=== PATIENT | male | born 1980 | race Caucasian/White ===

== ENCOUNTER 2016-04-09 06:38 | Emergency (ER) | payer MEDICAID ==
[2016-04-09 06:58] VITALS: TEMP 98.1
[2016-04-09] MEDS ORDERED: LORazepam 1 MG TAB PO ONE ×2 (07:26→09:11)
--- NOTE | 2016-04-09 07:28 | EDPHY ---
H & P Stated Complaint: palpitations, no sleep Time Seen by Provider: 04/09/16 07:18 HPI/ROS: CHIEF COMPLAINT: Insomnia and alcohol withdrawal HISTORY OF PRESENT ILLNESS: Patient is a 36-year-old man with history of alcoholism. He had been clean after a treatment facility for the last 9 weeks but then fell off the wagon on Thursday and has been drinking for the last 72 hours. His last drink was about 5 hours ago. He states that he has not slept for 2 days. He is tremulous and tachycardic. He has had trouble with alcohol withdrawal before. He is also on a slow Klonopin taper prescribed by his primary physician at [facility]. He took a triple dose this morning without significant relief. No vomiting. No seizures. No fever. REVIEW OF SYSTEMS: Constitutional: denies: chills, fever, recent illness, recent injury EENTM: denies: blurred vision, double vision, nose congestion Respiratory: denies: cough, shortness of breath Cardiac: denies: chest pain, irregular heart rate, lightheadedness, palpitations Gastrointestinal/Abdominal: denies: abdominal pain, diarrhea, nausea, vomiting, blood streaked stools Genitourinary: denies: dysuria, frequency, hematuria, pain Musculoskeletal: denies: joint pain, muscle pain Skin: denies: lesions, rash, jaundice, bruising Neurological: denies: headache, numbness, paresthesia, tingling, dizziness, weakness Hematologic/Lymphatic: denies: blood clots, easy bleeding, easy bruising Immunologic/allergic: denies: HIV/AIDS, transplant EXAM: GENERAL: Well-appearing, well-nourished and in no acute distress. HEAD: Atraumatic, normocephalic. EYES: Pupils equal round and reactive to light, extraocular movements intact, sclera anicteric, conjunctiva are normal. ENT: TMs normal, nares patent, oropharynx clear without exudates. Moist mucous membranes. NECK: Normal range of motion, supple without lymphadenopathy or JVD. LUNGS: Breath sounds clear to auscultation bilaterally and equal. No wheezes rales or rhonchi. HEART: Slightly tachycardic, Regular rate and rhythm without murmurs, rubs or gallops. ABDOMEN: Soft, nontender, normoactive bowel sounds. No guarding, no rebound. No masses appreciated. BACK: No CVA tenderness, no spinal tenderness, step-offs or deformities EXTREMITIES: Normal range of motion, no pitting or edema. No clubbing or cyanosis. NEUROLOGICAL: Mild tremors, Cranial nerves II through XII grossly intact. Normal speech, normal gait. 5/5 strength, normal movement in all extremities, normal sensation PSYCH: Anxious, Vero SKIN: Warm, dry, normal turgor, no visible rashes or lesions. Source: Patient Exam Limitations: No limitations - Personal History Current Tetanus/Diphtheria Vaccine: Yes Current Tetanus Diphtheria and Acellular Pertussis (TDAP): Yes - Medical/Surgical History Hx Asthma: No Hx Chronic Respiratory Disease: No Hx Diabetes: No Hx Cardiac Disease: No Hx Renal Disease: No Hx Cirrhosis: No Hx Alcoholism: Yes Hx HIV/AIDS: No Hx Splenectomy or Spleen Trauma: No Other PMH: PMH: DENIES, INSOMNIA, ETOH WITHDRAWAL, R foot fx. PSH: DENIES - Family History Significant Family History: No pertinent family hx - Social History Smoking Status: Current every day smoker Alcohol Use: Heavy Drug Use: Other Constitutional: Initial Vital Signs Temperature (C) 36.7 C 04/09/16 06:54 Heart Rate 128 H 04/09/16 06:54 Respiratory Rate 16 04/09/16 06:54 Blood Pressure 124/87 H 04/09/16 06:54 O2 Sat (%) 95 04/09/16 06:54 O2 Delivery Mode Room Air Allergies/Adverse Reactions: No Known Allergies Allergy (Unverified 04/09/16 06:54) Home Medications: Medication Instructions Recorded CLONAZEPAM 11/26/15 Medical Decision Making - Diagnostics EKG Interpretation: An EKG obtained and was read and documented in trace view. Please see trace view for full reading and report. Sinus tachycardia no acute ischemic changes or arrhythmias ED Course/Re-evaluation: I will treat the patient with oral Ativan. He most likely cannot go to the alcohol recovery Center for 2 reasons. 1 he is on a benzo taper prescribed by his primary doctor. 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 We will try to control his symptoms here in the ER and likely discharge him with a Librium sample pack. He has a follow-up appointment with his doctor tomorrow to reassess his Klonopin taper. 915 a.m. the patient is doing much better. His heart rate is down to 105. I will treat him with more Ativan. He continues to pace. He is feeling palpitations and is requesting an EKG. 10:15 a.m. the patient is asking to go home. He feels better after Ativan. I will give him a take-home pack of Librium. He is not able to to the alcohol recovery Center for several reasons. He has a follow-up appoint with his primary care doctor tomorrow. Declines further workup or testing. Additional verbal discharge instructions given. Differential Diagnosis: Partial list of the Differential diagnosis considered include but were not limited to; Alcohol withdrawal, anxiety and although unlikely based on the history and physical exam, I also considered arrhythmia, acute coronary disease , infection. I discussed these differential diagnoses and the plan with the patient as well as the usual and expected course. The patient understands that the diagnosis is provisional and that in medicine we are not always correct and that further workup is often warranted. Usual and customary warnings were given. All of the patient's questions were answered. The patient was instructed to return to the emergency department should the symptoms at all worsen or return, otherwise to followup with the physician as we discussed. - Data Points Medications Given: Discontinued Medications Acetaminophen (Tylenol) 1,000 mg PO EDNOW ONE Stop: 04/09/16 09:21 Last Admin: 04/09/16 09:25 Dose: 1,000 mg Chlordiazepoxide (Librium 25 Mg Prepack#6) 1 btl TAKEHOME EDNOW ONE Stop: 04/09/16 10:20 Last Admin: 04/09/16 10:50 Dose: Not Given Lorazepam (Ativan) 2 mg PO EDNOW ONE Stop: 04/09/16 07:27 Last Admin: 04/09/16 07:30 Dose: 2 mg Lorazepam (Ativan) 2 mg PO EDNOW ONE Stop: 04/09/16 09:12 Last Admin: 04/09/16 09:15 Dose: 2 mg Departure - Departure Disposition: Home, Routine, Self-Care Clinical Impression: Alcohol withdrawal Qualifiers: Complication of substance-induced condition: uncomplicated Qualified Code(s): F10.230 - Alcohol dependence with withdrawal, uncomplicated Condition: Fair Instructions: Chlordiazepoxide (By mouth), Alcohol Withdrawal (ED) Referrals: DARBY MORTENSEN [Other] - As per Instructions
--- NOTE | 2016-04-09 09:18 | CPEKG ---
Heart Rate: 108 RR Interval: 556 P-R Interval: 144 QRSD Interval: 74 QT Interval: 320 QTC Interval: 429 P [place]: 61 QRS [place]: 56 T Wave [place]: 26 EKG Severity - OTHERWISE NORMAL ECG - EKG Impression: SINUS TACHYCARDIA Electronically Signed By: True Zaldivar 09-Apr-2016 09:35:06
[2016-04-09] MEDS ORDERED: ACETAMINOPHEN 500 MG TAB PO ONE (09:20)
[2016-04-09] MEDS ORDERED: ACETAMINOPHEN 500 MG TAB ONE (09:20)
[2016-04-09] MEDS ORDERED: CHLORDIAZEPOXIDE 25MG PREPK#6 BTL TAKEHOME ONE (10:19)
[2016-04-09 10:54] VITALS: BP 199/72; PULSE 99; RESP 16; O2SAT 94
== END 2016-04-09 10:50 | disposition home or self-care (01) ==
DX: F10.230 Alcohol dependence with withdrawal, uncomplicated (principal); F17.200 Nicotine dependence, unspecified, uncomplicated

== ENCOUNTER 2016-04-12 01:58 | Emergency (ER) | payer MEDICAID ==
[2016-04-12 02:19] VITALS: TEMP 98.1
[2016-04-12] MEDS ORDERED: NS 1,000 ML IV ONE (03:02)
[2016-04-12] MEDS ORDERED: LORazepam 2 MG/ML INJ IVP ONE (03:03)
[2016-04-12] MEDS ORDERED: PHENobarbital NA 130 MG/ML VIAL IVP ONE (03:03)
[2016-04-12] MEDS ORDERED: ONDANSETRON 4 MG/2 ML VIAL ONE (03:48)
--- NOTE | 2016-04-12 05:51 | EDPHY ---
H & P Stated Complaint: pt says he's been weaning off benzo's, thinks he was weaned too quickly Time Seen by Provider: 04/12/16 02:27 HPI/ROS: HPI The patient presents with tremors, anxiety, insomnia. He believes he could be withdrawing from alcohol or benzodiazepines. He was seen in the emergency room 2 days ago with similar presentation and received Ativan. He says he was not discharged with any medications. When he got home yesterday he took a total of 2 mg of clonazepam throughout the day and also drink alcohol, approximately a half pt. Today he began to feel shaky and was having a difficult time sleeping. He is followed by a primary care doctor and a psychiatrist and the goal is to wean him off of benzodiazepines. He is currently taking clonazepam prescribed by his primary care, however he has run out in the last 24 hours. He has been in rehab and detox facilities and was previously clean. REVIEW OF SYSTEMS Constitutional: No fever, no chills. Eyes: No discharge. ENT: No sore throat. Cardiovascular: No chest pain, no palpitations. Respiratory: No cough, no shortness of breath. Gastrointestinal: No abdominal pain, no vomiting. Genitourinary: No hematuria. Musculoskeletal: No back pain. Skin: No rashes. Neurological: No headache. Soc Hx: Alcohol abuse, chronic benzodiazepine use FHx: PHYSICAL General Appearance: Alert, no distress Eyes: Pupils equal and round no pallor or injection ENT, Mouth: Mucous membranes moist Respiratory: There are no retractions, lungs are clear to auscultation Cardiovascular: Tachycardic rate, regular rhythm Gastrointestinal: Abdomen is soft and non-tender, no masses, bowel sounds normal Neurological: A&O, moves all extremities, tongue wag, fine hand tremor Skin: Warm and dry, no rashes Musculoskeletal: Neck is supple non tender Extremities: symmetrical, full range of motion Psychiatric: Patient is oriented X 3, there is no agitation Source: Patient Exam Limitations: No limitations - Medical/Surgical History Hx Asthma: No Hx Chronic Respiratory Disease: No Hx Diabetes: No Hx Cardiac Disease: No Hx Renal Disease: No Hx Cirrhosis: No Hx Alcoholism: Yes Hx HIV/AIDS: No Hx Splenectomy or Spleen Trauma: No Other PMH: PMH: INSOMNIA, ETOH WITHDRAWAL, R foot fx, benzo addiction. PSH: DENIES - Social History Smoking Status: Current every day smoker Constitutional: Initial Vital Signs Temperature (C) 36.7 C 04/12/16 02:12 Heart Rate 112 H 04/12/16 02:12 Respiratory Rate 16 04/12/16 02:12 Blood Pressure 135/98 H 04/12/16 02:12 O2 Sat (%) 95 04/12/16 02:12 O2 Delivery Mode Room Air Allergies/Adverse Reactions: No Known Allergies Allergy (Verified 04/12/16 02:19) Home Medications: Medication Instructions Recorded CLONAZEPAM 11/26/15 chlordiazePOXIDE 25MG PREPK#6 1 btl TAKEHOME Q6H PRN #0 btl 04/12/16 [Librium 25 mg Prepack#6] Medical Decision Making ED Course/Re-evaluation: The patient was treated here with IV fluids, Ativan 1 mg, and 2 doses of phenobarbital with improvement in his symptoms. He was no longer tachycardic or tremulous at the end of his stay. He seems to be suffering from both alcohol withdrawal and benzodiazepine withdrawal and I have explained this to him. He is trying to get into a detox program at [facility]. I told him I cannot refill his clonazepam. I will give him a Librium pack with 6 pills. He is to follow up with his primary care doctor at [facility] to determined further treatment for his detox and anxiety. He will be discharged from the emergency room in good condition. Differential Diagnosis: This is a 36-year-old man with history of alcohol abuse and benzodiazepine use chronically who presents with signs of mixed benzodiazepine and alcohol withdrawal, with anxiety, insomnia, fine tremor. He is being followed as an outpatient for this, however he ran out of clonazepam so came into the emergency room. Differential diagnosis includes alcohol withdrawal, benzodiazepine withdrawal, anxiety. - Data Points Medications Given: Discontinued Medications Chlordiazepoxide (Librium 25 Mg Prepack#6) 1 btl TAKEHOME EDNOW ONE Stop: 04/12/16 06:41 Last Admin: 04/12/16 06:41 Dose: 1 btl Sodium Chloride (Ns) 1,000 mls @ 0 mls/hr IV ONCE ONE PRN Reason: Wide Open Stop: 04/12/16 03:03 Last Admin: 04/12/16 03:15 Dose: 1,000 mls Lorazepam (Ativan Injection) 1 mg IVP EDNOW ONE Stop: 04/12/16 03:04 Last Admin: 04/12/16 03:24 Dose: 1 mg Phenobarbital Sodium (Phenobarbital) 130 mg IVP ONCE ONE Stop: 04/12/16 03:04 Last Admin: 04/12/16 04:02 Dose: 130 mg Phenobarbital Sodium (Phenobarbital) 130 mg IVP ONCE ONE Stop: 04/12/16 04:28 Last Admin: 04/12/16 05:09 Dose: 130 mg Departure - Departure Disposition: Home, Routine, Self-Care Clinical Impression: Alcohol withdrawal, Benzodiazepine withdrawal Condition: Good Instructions: Alcohol Withdrawal (ED) Additional Instructions: You should follow up with your primary care providers in the next day. Referrals: [facility] [Outside] - As per Instructions Prescriptions: chlordiazePOXIDE 25MG PREPK#6 [Librium 25 mg Prepack#6] 1 btl TAKEHOME Q6H PRN # 0 btl PRN Reason: Anxiety
[2016-04-12] MEDS ORDERED: CHLORDIAZEPOXIDE 25MG PREPK#6 BTL TAKEHOME ONE ×2 (06:38→06:40)
[2016-04-12 06:47] VITALS: BP 140/90; PULSE 90; RESP 15; O2SAT 97
== END 2016-04-12 06:47 | disposition home or self-care (01) ==
DX: F10.239 Alcohol dependence with withdrawal, unspecified (principal); F13.239 Sedative, hypnotic or anxiolytic dependence with withdrawal, unspecified; F17.200 Nicotine dependence, unspecified, uncomplicated
CPT/HCPCS: 96374; J2405; J2560

== ENCOUNTER 2016-05-11 12:06 | Emergency (ER) | payer MEDICAID ==
--- NOTE | 2016-05-11 12:24 | EDPHY ---
H & P Time Seen by Provider: 05/11/16 12:09 HPI/ROS: CHIEF COMPLAINT: Left eye periorbital swelling HISTORY OF PRESENT ILLNESS: This patient is a 36 year old man presenting with acute left eye periorbital swelling and erythema. One week ago, the patient developed a stye, localized to the upper eyelid, and was evaluated at [facility]. He then saw his primary care provider on Thursday and was advised to keep warm compresses on the eyelid. Three days ago, he woke up to a large about of discharge from his eye. Since then, he has developed left periorbital swelling and erythema. He went back to his primary care provider for re-check on Thursday (three days ago) and was prescribed 300mg Clindamycin TID. The periorbital swelling and erythema has continued to worsen and now is moderate. He continues to use warm compresses and camomile compresses on the area, with no alleviation. He also is frequently massaging the area. He continues to have drainage from his eye. No change in vision or eye pain. REVIEW OF SYSTEMS: Constitutional: No fever, no chills Eyes: No visual changes, no foreign body Past Medical/Surgical History: Non-contributory. Social History: PCP is Han Mari. Smokes cigarettes. Employed. Smoking Status: Current every day smoker Physical Exam: Lids: No proptosis. There is periorbital erythema, tenderness, and swelling of left upper lid. No fluctuance. The lid was averted, no localized abscess on upper inner lid. No vesicles. Conjunctivae: No erythema, no discharge Pupils: equal round and reactive to light EOMI without pain Cornea: Normal Anterior chamber: Clear, no hyphema Constitutional: Initial Vital Signs Temperature (C) 36.4 C 05/11/16 12:10 Heart Rate 81 05/11/16 12:10 Respiratory Rate 16 05/11/16 12:10 Blood Pressure 133/90 H 05/11/16 12:10 O2 Sat (%) 98 05/11/16 12:10 O2 Delivery Mode Room Air Allergies/Adverse Reactions: No Known Allergies Allergy (Verified 04/12/16 02:19) Home Medications: Medication Instructions Recorded Cephalexin [Keflex (*)] 500 mg PO QID #40 cap 05/11/16 Clindamycin 05/11/16 Sulfamethox/Tmp 800/160 mg 1 tab PO BID #20 tab 05/11/16 [Bactrim Ds] Valium 05/11/16 Medical Decision Making Procedures: The left upper eyelid was averted. The eye was anesthetized with Proparacaine Hydrochloride ophthalmic solution. The inner lid was further inspected to identify a possible abscess for drainage. No localized abscess ED Course/Re-evaluation: The patient presents with a one week history of left upper eyelid stye, now presenting with left periorbital cellulitis, despite three days of Clindamycin. On exam, the lid was averted and there is a pointing abscess present on the upper inner lid. I attempted to apply gentle pressure to the abscess and encourage spontaneous drainage, however only a small amount of drainage was expressed. I discussed switching from Clindamycin to Keflex and Bactrim regimen. I also advised him to call the on-call civil attorney first thing tomorrow morning to be seen. Differential Diagnosis: includes though not limited to orbital cellulitis, conjunctivitis, iritis, corneal ulcer - Data Points Medications Given: Discontinued Medications Cephalexin HCl (Keflex) 500 mg PO EDNOW ONE PRN Reason: Protocol Stop: 05/11/16 12:39 Last Admin: 05/11/16 12:42 Dose: 500 mg Proparacaine HCl (Alcaine 0.5%) 1 drops OP EDNOW ONE Stop: 05/11/16 12:29 Last Admin: 05/11/16 12:28 Dose: 1 drop Trimethoprim/Sulfamethoxazole (Bactrim Ds) 1 ea PO EDNOW ONE PRN Reason: Protocol Stop: 05/11/16 12:39 Last Admin: 05/11/16 12:42 Dose: 1 ea Departure - Departure Disposition: Home, Routine, Self-Care Clinical Impression: Preseptal cellulitis of left eye Molly Qualifiers: Laterality: left Eyelid: upper Qualified Code(s): H00.014 - Hordeolum externum left upper eyelid Condition: Good Instructions: Molly (ED) Additional Instructions: Call the civil attorney first thing tomorrow morning to get an appointment. I would recommend that you be seen in their office tomorrow. Let their office know that you have been seen in the emergency department. Continue to apply warm compresses to the eye. Discontinue the Clindamycin. Instead, take Keflex and Bactrim as prescribed. Return for worsening symptoms, vision changes, or other concerns. Referrals: HAN MARI MD [Primary Care Provider] - As per Instructions Ochoa Hutchins MD [Medical Doctor] - As per Instructions (In Flight Technician) Prescriptions: Cephalexin [Keflex (*)] 500 mg PO QID #40 cap Sulfamethox/Tmp 800/160 mg [Bactrim Ds] 1 tab PO BID #20 tab Report Scribed for: Zelda Valladares Report Scribed by: Constanza Cantu Date of Report: 05/11/16 Time of Report: 12:19
[2016-05-11] MEDS ORDERED: PROPARACAINE 0.5% 15 ML OPHT DROP ONE (12:27)
[2016-05-11] MEDS ORDERED: PROPARACAINE 0.5% 15 ML OPHT DROP OP ONE (12:28)
[2016-05-11] MEDS ORDERED: CEPHALEXIN 500 MG CAP PO ONE (12:38)
[2016-05-11] MEDS ORDERED: SULFAMETHOX/TMP 800/160 MG 1 TAB PO ONE (12:38)
[2016-05-11 12:39] VITALS: BP 128/67; PULSE 82; RESP 18; TEMP 98.6; O2SAT 95
== END 2016-05-11 12:51 | disposition home or self-care (01) ==
DX: H05.012 Cellulitis of left orbit (principal); H00.014 Hordeolum externum left upper eyelid; F17.200 Nicotine dependence, unspecified, uncomplicated

== ENCOUNTER 2016-07-05 07:38 | Emergency (ER) | payer MEDICAID ==
[2016-07-05 07:45] VITALS: TEMP 97.9
[2016-07-05] MEDS ORDERED: ONDANSETRON DISINTEGRATING 4 MG TAB PO ONE (07:53)
--- NOTE | 2016-07-05 07:54 | EDPHY ---
H & P Stated Complaint: relapsed/alcoholism/last drink at midnight n/v Time Seen by Provider: 07/05/16 07:45 HPI/ROS: Chief Complaint: Nausea, vomiting, withdrawal HPI: 36-year-old male with a history of alcoholism who had been sober for 3 months for began drinking again last night. Patient states that he has had nausea vomiting this morning his eye keep medications down. Patient states that he has a history of anxiety is been tapering off of diazepam. Currently is taking 5 mg 3 times a day, last was last night. No fevers or chills. Has never had an alcohol withdrawal seizure. Did have a fall but did not his head. Does not have a headache at this time. Has a little bit of pain in his right side. Has been ambulating without difficulty. ROS: 10 point Review of Systems is negative except as noted in the HPI. PMH: Alcoholism, anxiety Social History: No smoking, relapsed back to alcohol, no recreational drug use Family History: non-contributory Physical Exam: Gen: Awake, Alert, No Distress HEENT: Nose: no rhinorrhea Eyes: PERRLA, EOMI Mouth: Moist mucosa Neck: Supple, no JVD Chest: nontender, lungs clear to auscultation Heart: S1, S2 normal, no murmur Abd: Soft, non-tender, no guarding Back: no CVA tenderness, no midline tenderness Ext: no edema, non-tender Skin: no rash Neuro: CN II-XII intact, Sensation grossly intact, Strength 5/5 in bilateral upper and lower extremities - Personal History Current Tetanus/Diphtheria Vaccine: Yes - Medical/Surgical History Hx Asthma: No Hx Chronic Respiratory Disease: No Hx Diabetes: No Hx Cardiac Disease: No Hx Renal Disease: No Hx Cirrhosis: No Hx Alcoholism: Yes Hx HIV/AIDS: No Hx Splenectomy or Spleen Trauma: No Other PMH: PMH: INSOMNIA, ETOH recovering, R foot fx, benzo addiction-on taper. PSH: DENIES - Social History Smoking Status: Current every day smoker Constitutional: Initial Vital Signs Temperature (C) 36.6 C 07/05/16 07:41 Heart Rate 100 07/05/16 07:41 Respiratory Rate 20 07/05/16 07:41 Blood Pressure 121/91 H 07/05/16 07:41 O2 Sat (%) 93 07/05/16 07:41 O2 Delivery Mode Room Air Allergies/Adverse Reactions: No Known Allergies Allergy (Verified 07/05/16 07:40) Home Medications: Medication Instructions Recorded Valium 05/11/16 Medical Decision Making ED Course/Re-evaluation: Patient is here with alcohol withdrawal but no withdrawal symptoms. Patient states she has been vomiting all morning had no vomiting here. I have given him Zofran. He has eaten some crackers and drunk some ezequiel gill without any problems. He is requesting an IV. I have explained to him that there is no indication for IV placement at this time. He is not clinically dehydrated. He is tolerating p.o. fluids here. He is here mostly because he is suffering from the effects of the alcohol he drank last night. I have explained to him the placing an IV is not a benign procedure in their complications associated with it including risk of infection and blood clots. There is no clinical indication at this time. He is tolerating p.o.. He will be discharged to home. I have encouraged him to contact the [facility] but he states he cannot do this as he works there. I was encouraged him to contact his therapist in his primary care physician. He has Zofran at home. He will be discharged with follow-up as an outpatient. - Data Points Medications Given: Discontinued Medications Ondansetron HCl (Zofran Odt) 4 mg PO EDNOW ONE Stop: 07/05/16 07:54 Last Admin: 07/05/16 07:55 Dose: 4 mg Departure - Departure Disposition: Home, Routine, Self-Care Clinical Impression: Alcohol abuse Condition: Good Instructions: Abuse of Alcohol (ED), At-Risk Alcohol Use (ED) Additional Instructions: Please contact the [facility] for resources to stop drinking alcohol. Referrals: HAN MRAI MD [Primary Care Provider] - As per Instructions [facility] [Outside] - As per Instructions
[2016-07-05 08:44] VITALS: BP 108/76; PULSE 88; RESP 16; O2SAT 97
== END 2016-07-05 09:06 | disposition home or self-care (01) ==
DX: F10.10 Alcohol abuse, uncomplicated (principal); F17.200 Nicotine dependence, unspecified, uncomplicated

== ENCOUNTER 2016-07-06 13:56 | Emergency (ER) | payer MEDICAID ==
--- NOTE | 2016-07-06 14:23 | EDPHY ---
H & P Time Seen by Provider: 07/06/16 14:10 HPI/ROS: CHIEF COMPLAINT: Nausea, vomiting, withdrawal HISTORY OF PRESENT ILLNESS: The patient is a 36-year-old male who presents to the emergency department reporting that he is withdrawing from alcohol. Patient was seen in the emergency department yesterday for similar symptoms. Patient states that he has been drinking heavily for the past 4 days. His last drink was 9:00 a.m.. He feels anxious and jittery. He feels as though he shaking. He has had nausea and vomiting. No abdominal pain. The patient states he has a plan. He is here for a "IV drip." He then plans on going home and flying to his mother's house. REVIEW OF SYSTEMS: My complete review of systems is negative except as mentioned in the HPI. Past Medical/Surgical History: Includes alcohol abuse, anxiety Social history: The patient does not smoke. He drinks alcohol. No recreational drug use. Family history: Noncontributory Smoking Status: Current every day smoker Physical Exam: Vitals noted. 36.7, 141/99, 118, 22, 95% on room air GENERAL: No acute distress, alert. Anxious appearing. HEENT: Eyes normal to inspection, normal pharynx, no signs of dehydration. Mild tongue wag NECK: No thyromegaly, no lymphadenopathy, supple. RESPIRATORY: Clear to auscultation bilaterally, no rales, rhonchi or wheezing. CVS: Tachycardia with regular rhythm, no rubs, murmurs, or gallops. ABDOMEN: Soft, nontender, nondistended, no organomegaly. BACK: Normal to inspection, no CVA tenderness. SKIN: Normal color, no rash, warm, dry. No pallor. EXTREMITIES: No pedal edema, no calf tenderness, no Homans sign or cords, no joint swelling. NEURO/PSYCH: Alert and oriented x3, normal mood and affect, normal motor sensory exam. No obvious cranial nerve deficit. Mild hand tremor. Constitutional: Initial Vital Signs Temperature (C) 36.7 C 07/06/16 13:59 Heart Rate 118 H 07/06/16 13:59 Respiratory Rate 22 H 07/06/16 13:59 Blood Pressure 141/99 H 07/06/16 13:59 O2 Sat (%) 95 07/06/16 13:59 O2 Delivery Mode Room Air Allergies/Adverse Reactions: No Known Allergies Allergy (Verified 07/06/16 13:57) Home Medications: Medication Instructions Recorded Valium 05/11/16 Zofran 07/06/16 Medical Decision Making ED Course/Re-evaluation: In the emergency department I discussed possible etiologies with the patient. An IV was placed. Patient was given normal saline 2 L IV for hydration. He is given Ativan 2 mg IV for alcohol withdrawal. He is given Librium 25 mg orally for alcohol withdrawal. 1505: On recheck the patient was feeling better. Patient's heart rate is 86. He has no hand tremor. No tongue tremor. I discussed disposition options with the patient. This included transfer to the [facility]. The patient does not want to be admitted for detox. I gave the patient warnings prior to leaving. He will return with worsening symptoms. Differential Diagnosis: My differential includes but is not limited to alcohol withdrawal, tachycardia, ACS, dysrhythmia, dehydration, electrolyte abnormality, sugar abnormality, drug abuse - Data Points Laboratory Results: Laboratory Results 07/06/16 14:25 07/06/16 14:25 07/06/16 07/06/16 14:25 14:25 WBC 6.03 10^3/uL 10^3/uL (3.80-9.50) RBC 5.11 10^6/uL 10^6/uL (4.40-6.38) Hgb 15.7 g/dL g/dL (13.7-17.5) Hct 45.5 % % (40.0-51.0) MCV 89.0 fL fL (81.5-99.8) MCH 30.7 pg pg (27.9-34.1) MCHC 34.5 g/dL g/dL (32.4-36.7) RDW 13.4 % % (11.5-15.2) Plt Count 190 10^3/uL 10^3/uL (150-400) MPV 9.1 fL fL (8.7-11.7) Neut % (Auto) 61.2 % % (39.3-74.2) Lymph % (Auto) 30.3 % % (15.0-45.0) [place] % (Auto) 7.1 % % (4.5-13.0) Eos % (Auto) 0.2 % L % (0.6-7.6) Baso % (Auto) 1.0 % % (0.3-1.7) Nucleat RBC Rel Count 0.0 % % (0.0-0.2) Absolute Neuts (auto) 3.69 10^3/uL 10^3/uL (1.70-6.50) Absolute Lymphs (auto) 1.83 10^3/uL 10^3/uL (1.00-3.00) Absolute Monos (auto) 0.43 10^3/uL 10^3/uL (0.30-0.80) Absolute Eos (auto) 0.01 10^3/uL L 10^3/uL (0.03-0.40) Absolute Basos (auto) 0.06 10^3/uL 10^3/uL (0.02-0.10) Absolute Nucleated RBC 0.00 10^3/uL 10^3/uL (0-0.01) Immature Gran % 0.2 % % (0.0-1.1) Immature Gran # 0.01 10^3/uL 10^3/uL (0.00-0.10) Sodium 140 mEq/L mEq/L (134-144) Potassium 3.7 mEq/L mEq/L (3.5-5.2) Chloride 105 mEq/L mEq/L (97-110) Carbon Dioxide 22 mEq/l mEq/l (22-31) Anion Gap 13 mEq/L mEq/L (8-16) BUN 21 mg/dL mg/dL (7-23) Creatinine 0.8 mg/dL mg/dL (0.7-1.3) Estimated GFR > 60 Glucose 117 mg/dL H mg/dL (70-100) Calcium 8.7 mg/dL mg/dL (8.5-10.4) Medications Given: Discontinued Medications Chlordiazepoxide HCl (Librium) 25 mg PO EDNOW ONE Stop: 07/06/16 14:45 Last Admin: 07/06/16 14:45 Dose: 25 mg Sodium Chloride (Ns) 1,000 mls @ 0 mls/hr IV ONCE ONE PRN Reason: Wide Open Stop: 07/06/16 14:45 Last Admin: 07/06/16 14:45 Dose: 1,000 mls Sodium Chloride (Ns) 1,000 mls @ 0 mls/hr IV ONCE ONE PRN Reason: Wide Open Stop: 07/06/16 14:46 Last Admin: 07/06/16 14:46 Dose: 1,000 mls Lorazepam (Ativan Injection) 1 mg IVP EDNOW ONE Stop: 07/06/16 14:45 Last Admin: 07/06/16 14:45 Dose: 1 mg Departure - Departure Disposition: Home, Routine, Self-Care Clinical Impression: Alcohol withdrawal Qualifiers: Complication of substance-induced condition: uncomplicated Qualified Code(s): F10.230 - Alcohol dependence with withdrawal, uncomplicated Condition: Good Instructions: Alcohol Withdrawal (ED) Additional Instructions: Return with increasing anxiety, shaking, confusion, or any other concerns. Referrals: Constanza Wolfe MD [Medical Doctor] - 2-3 days, call for appt.
[2016-07-06] MEDS ORDERED: LORazepam 2 MG/ML INJ ONE (14:27)
[2016-07-06] MEDS ORDERED: chlordiazePOXIDE 25 MG CAP ONE (14:27)
[2016-07-06] MEDS ORDERED: NS 1,000 ML IV ONE ×2 (14:44→14:45)
[2016-07-06] MEDS ORDERED: chlordiazePOXIDE 25 MG CAP PO ONE (14:44)
[2016-07-06] MEDS ORDERED: LORazepam 2 MG/ML INJ IVP ONE (14:44)
[2016-07-06 15:02] LABS: % IMMATURE GRANULYOCYTES 0.2 % (0.0-1.1); ABSOLUTE IMMATURE GRANULOCYTES 0.01 10^3/uL (0.00-0.10); ADD DIFF? NO; ADD MORPH? NO; ADD SCAN? NO; ATYPICAL LYMPHOCYTE FLAG 0 (0-99); FRAGMENT RBC FLAG 0 (0-99); HEMATOCRIT 45.5 % (40.0-51.0); HEMOGLOBIN 15.7 g/dL (13.7-17.5); LEFT SHIFT FLG 0 (0-99); LIPEMIA HEMOLYSIS FLAG 90 (0-99); MEAN CELL HEMOGLOBIN 30.7 pg (27.9-34.1); MEAN CELL HEMOGLOBIN CONCENTR. 34.5 g/dL (32.4-36.7); MEAN PLATELET VOLUME 9.1 fL (8.7-11.7); PLATELET CLUMPS FLAG 20 (0-99); PLATELET COUNT 190 10^3/uL (150-400); RED BLOOD CELL COUNT 5.11 10^6/uL (4.40-6.38); RED CELL DISTRIBUTION WIDTH 13.4 % (11.5-15.2)
[2016-07-06 15:06] LABS: ANION GAP 13 mEq/L (8-16); CALCIUM 8.7 mg/dL (8.5-10.4); CARBON DIOXIDE 22 mEq/l (22-31); CHLORIDE 105 mEq/L (97-110); CREATININE 0.8 mg/dL (0.7-1.3); GLOMERULAR FILTRATION RATE > 60; GLUCOSE 117 mg/dL (70-100); POTASSIUM 3.7 mEq/L (3.5-5.2); SODIUM 140 mEq/L (134-144)
[2016-07-06 16:01] VITALS: BP 136/82; PULSE 98; RESP 20; TEMP 97.5; O2SAT 96
== END 2016-07-06 16:01 | disposition home or self-care (01) ==
DX: F10.230 Alcohol dependence with withdrawal, uncomplicated (principal); F17.200 Nicotine dependence, unspecified, uncomplicated
CPT/HCPCS: 96374; J2060

== ENCOUNTER 2017-04-03 09:14 | Emergency (ER) | payer MEDICAID, OTHER ==
[2017-04-03 09:21] VITALS: RESP 16; TEMP 99
[2017-04-03] MEDS ORDERED: METOCLOPRAMIDE 10 MG/2 ML VIAL IVP ONE (09:38)
[2017-04-03] MEDS ORDERED: NS 1,000 ML IV ONE (09:38)
[2017-04-03] MEDS ORDERED: ACETAMINOPHEN 325 MG TAB PO ONE (09:38)
[2017-04-03 09:57] LABS: PLATELET COUNT 100 10^3/uL (150-400)
--- NOTE | 2017-04-03 09:57 | EDPHY ---
General Narrative: CHIEF COMPLAINT: Fever, headache, body aches HISTORY OF PRESENT ILLNESS: Patient presents with 3 days history of fever, headache, body aches. Headache is actually been present for greater than a month as he has been tapering from benzos. The headache over the past 3 days has been worse. Associated with fever with a T-max of 103. Body aches, sore throat, nausea, malaise occasional vomiting. No chest pain. Minimal cough. Mild sore throat. No neck pain or stiffness. No urinary complaints. No rash. Went to urgent care yesterday with reportedly negative rapid flu test. No other associated complaints or modifying factors. REVIEW OF SYSTEMS: Ten systems reviewed and are negative unless otherwise noted in the HPI PCP: None SPECIALISTS: Denies PAST MEDICAL HISTORY: Headaches PAST SURGICAL HISTORY: No recent surgeries SOCIAL HISTORY: Quit smoking 1 month ago. No alcohol. 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 No meningeal signs. Painless range of motion all planes Respiratory: Lungs are clear to auscultation. No wheezing, rhonchi or crackles Cardiovascular: Regular rate and rhythm. No murmur. Gastrointestinal: Abdomen is soft and nontender. No tympany. No rigidity. Benign abdominal examination Back: non-tender, no bony abnormalities Neurological: A&O, nonfocal, normal gait. Strength is symmetric in 4 limbs. Skin: Warm and dry, no rash no petechiae or purpura Extremities: Nontender, no pedal edema Psychiatric: Mood and affect normal DIFFERENTIAL DIAGNOSES: Including but not limited to influenza, viral syndrome, strep pharyngitis, MDM: 9:40 a.m. Flu-like symptoms over the past 3-5 days. He is mildly tachycardic but not tachypneic or hypotensive. He is not febrile here but does report fever at home. I have ordered laboratory studies and influenza test. I have ordered medications for headache and IV fluid. He has no evidence of meningitis. He does not appear to be septic clinically and does not meet SIRS at this time. 10:12 a.m. Patient's CBC reveals a white blood cell count of 1.48. There is some evidence of neutropenia. Thus I have ordered blood cultures. Lactic acid has already been obtained and is negative. I have also added a chest x-ray and urinalysis. 11:12 a.m. Influenza negative. Chemistry unremarkable. Chest x-ray does not reveal any evidence of pneumonia. I have re-evaluated the patient this time, his headache is significantly better at this time. His neck remains supple without any evidence of meningismus. He does still have a mild headache but it is minimal at this time. I offered a lumbar puncture to evaluate for the possibility of meningitis and he has declined. He says that he does not want anyone to perform this test. We discussed the risks, benefits and alternatives and I do feel he is capable of making this decision. I have a very low clinical suspicion for this as well. We discussed discharge home with short course of medication for his headache. I do feel this is likely a viral etiology. We discuss follow up with primary care physician on-call for the leukocytopenia. We discussed ED precautions for any worsening of headache, any neck pain or stiffness of any kind. He is comfortable with this plan and discharged home stable condition. SUPERVISION: Patient was independently examined, but I discussed the case with my secondary supervising physician Dr. Fenton - History Smoking Status: Current every day smoker - Objective Vital Signs: Initial Vital Signs Temperature (C) 99.0 F 04/03/17 09:17 Heart Rate 103 H 04/03/17 09:17 Respiratory Rate 16 04/03/17 09:17 Blood Pressure 105/68 04/03/17 09:17 O2 Sat (%) 93 04/03/17 09:17 O2 Delivery Mode Room Air Allergies/Adverse Reactions: No Known Allergies Allergy (Verified 04/03/17 09:16) Home Medications: Medication Instructions Recorded Acet/Caffeine/Buta Fioricet 1 each PO Q6 #11 tab 04/03/17 [Fioricet (*)] Acetaminophen/Codeine 300/30Mg 1 each PO Q6 PRN #11 tab 04/03/17 [Tylenol #3 (*)] Promethazine HCl [Phenergan 25mg 25 mg PO Q8 PRN #12 tab 04/03/17 (*)] Laboratory Results: Laboratory Results 04/03/17 09:48 04/03/17 09:48 Medications Given: Discontinued Medications Acetaminophen (Tylenol) 650 mg PO EDNOW ONE Stop: 04/03/17 09:39 Last Admin: 04/03/17 10:06 Dose: 650 mg Diphenhydramine HCl (Benadryl Injection) 25 mg IVP EDNOW ONE Stop: 04/03/17 09:39 Last Admin: 04/03/17 10:05 Dose: 25 mg Sodium Chloride (Ns) 1,000 mls @ 0 mls/hr IV EDNOW ONE; Wide Open PRN Reason: Protocol Stop: 04/03/17 09:39 Last Admin: 04/03/17 10:06 Dose: 1,000 mls Metoclopramide HCl (Reglan Injection) 10 mg IVP EDNOW ONE Stop: 04/03/17 09:39 Last Admin: 04/03/17 10:05 Dose: 10 mg Oxycodone/Acetaminophen (Percocet 5/325) 1 tab PO EDNOW ONE Stop: 04/03/17 12:02 Last Admin: 04/03/17 12:05 Dose: 1 tab Departure - Departure Disposition: Home, Routine, Self-Care Clinical Impression: Chills Cephalgia Qualifiers: Headache type: unspecified Headache chronicity pattern: acute headache Intractability: not intractable Qualified Code(s): R51 - Headache Leukocytopenia, unspecified Qualifiers: Leukopenia type: unspecified Qualified Code(s): D72.819 - Decreased white blood cell count, unspecified Condition: Good Instructions: Acute Headache (DC), Viral Syndrome (ED) Additional Instructions: 1. Medications as prescribed as needed 2. ED precautions for any worsening headache, sudden change in headache, any neck pain or stiffness 3. Follow up with the on-call primary care physician as provided for outpatient follow-up and for further workup of the low white blood cell count Referrals: Jordan Stevens, [Medical Doctor] - As per Instructions [facility] (ED,. [Edm Groups for Call Sched] - As per Instructions Stand Alone Forms: Work Excuse Prescriptions: Acet/Caffeine/Buta Fioricet [Fioricet (*)] 1 each PO Q6 #11 tab Acetaminophen/Codeine 300/30Mg [Tylenol #3 (*)] 1 each PO Q6 PRN #11 tab PRN Reason: Pain, Mild Promethazine HCl [Phenergan 25mg (*)] 25 mg PO Q8 PRN #12 tab PRN Reason: Nausea/Vomiting, Use 1st
[2017-04-03] MEDS ORDERED: OXYCODONE/APAP 5/325 TAB PO ONE (12:01)
[2017-04-03 12:26] VITALS: BP 113/72; PULSE 76; O2SAT 95
== END 2017-04-03 12:17 | disposition home or self-care (01) ==
DX: R51 Headache (principal); R68.83 Chills (without fever); E86.9 Volume depletion, unspecified; F17.200 Nicotine dependence, unspecified, uncomplicated; D72.819 Decreased white blood cell count, unspecified
CPT/HCPCS: 96374; J1200; J2765

== ENCOUNTER 2017-07-04 08:11 | Emergency (ER) | payer MEDICAID, OTHER ==
--- NOTE | 2017-07-04 08:18 | EDPHY ---
H & P Time Seen by Provider: 07/04/17 08:17 HPI/ROS: HPI: This is a 37-year-old male who presents with Chief Complaint: M1, delusions Location: psych Quality: M1 hold Duration: 2 weeks Signs and Symptoms: + auditory and visual command hallucinations, no suicidal ideation with a plan, no homicidal ideation, + paranoid Timing: Acute on chronic Severity: Severe Context: Patient has a history of alcoholism in the recovery phase, history of benzodiazepine addiction effectively tapered in January 2017 presents on M1 hold from the crisis [facility]. Family are expressing increasing concerned as the patient is experiencing paranoid delusions both auditory and visual over the last 2 weeks. Patient reports that he has not had any sleeping approximately 12 -14 days. He relates that his mind is in a rapid thought process, unable to slow it down. He is not sure what is real and not real anymore. His behavior is labile at times. This is putting strain on both his family and employment. Denies any suicidal ideation/homicidal ideation. Patient admits that he feels extremely paranoid. Denies any recreational drug use or alcohol use. Modifying Factors: None Comment: ROS: see HPI Constitutional: No fever, no chills, no weight loss Eyes: No blurred vision Respiratory: No shortness of breath, no cough Cardiovascular: No chest pain Gastrointestinal: No nausea, no vomiting, no diarrhea Genitourinary: No dysuria Extremities: No myalgias Neurologic: No weakness, no numbness Skin: No rashes Hematologic: No bruising, no bleeding MEDICAL/SURGICAL/SOCIAL HISTORY: Medical history: INSOMNIA, ETOH recovering, R foot fx, benzo addiction hx finished taper 02/08 Surgical history: Denies Social history: Family history noncontributory. CONSTITUTIONAL: Calm and cooperative, adult white male, awake and alert, no obvious distress HEENT: Atraumatic and normocephalic, PERRL, EOMI. Nares patent; no rhinorrhea; no nasal mucosal edema. Tympanic membranes clear. Oropharynx clear, no exudate and moist pink mucosa. Airway patent. No lymphadenopathy. No meningismus. Cardiovascular: Normal S1/S2, regular rate, regular rhythm, without murmur rub or gallop. PULMONARY/CHEST: Symmetrical and nontender. Clear to auscultation bilaterally. Good air movement. No accessory muscle usage. ABDOMEN: Soft, nondistended, nontender, no rebound, no guarding, no peritoneal signs, no masses or organomegaly. No CVAT. EXTREMITIES: 2/2 pulses, strength 5/5, no deformities, no clubbing, no cyanosis or edema. NEUROLOGICAL: no focal neuro deficits. GCS 15. SKIN: Warm and dry, no erythema. no rash. Good capillary refill. PSYCH: Good eye contact, no flight of ideas, organized thought process, fair insight and judgment, + auditory and visual command hallucinations, no suicidal ideation with a plan, no homicidal ideation, + paranoid Source: Patient Exam Limitations: Clinical condition - Medical/Surgical History Hx Asthma: No Hx Chronic Respiratory Disease: No Hx Diabetes: No Hx Cardiac Disease: No Hx Renal Disease: No Hx Cirrhosis: No Hx Alcoholism: Yes Hx HIV/AIDS: No Hx Splenectomy or Spleen Trauma: No Other PMH: PMH: INSOMNIA, ETOH recovering, R foot fx, benzo addiction hx finished taper 02/08. PSH: DENIES - Social History Smoking Status: Current every day smoker Constitutional: Initial Vital Signs Temperature (C) 37.1 C 07/04/17 09:05 Heart Rate 93 07/04/17 09:05 Respiratory Rate 12 07/04/17 09:05 Blood Pressure 131/88 H 07/04/17 09:05 O2 Sat (%) 95 07/04/17 09:05 O2 Delivery Mode Room Air Allergies/Adverse Reactions: No Known Allergies Allergy (Verified 04/03/17 09:16) Home Medications: Medication Instructions Recorded NK [No Known Home Meds] 07/04/17 Medical Decision Making ED Course/Re-evaluation: 0825: Agree with M1 hold. Patient is clearly manic with delusions. Given Zyprexa 5 mg ODT. Labs and UDS ordered. 0845: Patient politely declined Zyprexa as he reports that made him feel like "the Hulk." He is currently calm and cooperative. Will continue to monitor. 0945: Labs and urine reviewed. Medically clear for mental health evaluation. 0950: [facility] notified 1420: [facility] recommends inpatient hospitalization. Looking for placement. 1442: Notified by nursing that patient requesting Nicoderm patch. Ativan 0.5 mg given. 1454: Patient is to be admitted to [facility]. 1630: Patient transferred to [facility]. This patient was seen under the supervision of my secondary supervising physician. I evaluated care for this patient independently. Discussed this patient with Dr. Ho who did not see the patient. Differential Diagnosis: Differential diagnosis includes but is not limited to intoxicants, head injury, bipolar disorder deanna tight, schizoaffective disorder, schizophrenia. - Data Points Laboratory Results: Laboratory Results 07/04/17 08:50 07/04/17 08:50 07/04/17 07/04/17 07/04/17 08:50 08:50 08:50 WBC 5.75 10^3/uL 10^3/uL (3.80-9.50) RBC 4.64 10^6/uL 10^6/uL (4.40-6.38) Hgb 14.0 g/dL g/dL (13.7-17.5) Hct 41.8 % % (40.0-51.0) MCV 90.1 fL fL (81.5-99.8) MCH 30.2 pg pg (27.9-34.1) MCHC 33.5 g/dL g/dL (32.4-36.7) RDW 12.7 % % (11.5-15.2) Plt Count 236 10^3/uL 10^3/uL (150-400) MPV 9.6 fL fL (8.7-11.7) Neut % (Auto) 72.6 % % (39.3-74.2) Lymph % (Auto) 20.9 % % (15.0-45.0) [place] % (Auto) 5.7 % % (4.5-13.0) Eos % (Auto) 0.3 % L % (0.6-7.6) Baso % (Auto) 0.3 % % (0.3-1.7) Nucleat RBC Rel Count 0.0 % % (0.0-0.2) Absolute Neuts (auto) 4.17 10^3/uL 10^3/uL (1.70-6.50) Absolute Lymphs (auto) 1.20 10^3/uL 10^3/uL (1.00-3.00) Absolute Monos (auto) 0.33 10^3/uL 10^3/uL (0.30-0.80) Absolute Eos (auto) 0.02 10^3/uL L 10^3/uL (0.03-0.40) Absolute Basos (auto) 0.02 10^3/uL 10^3/uL (0.02-0.10) Absolute Nucleated RBC 0.00 10^3/uL 10^3/uL (0-0.01) Immature Gran % 0.2 % % (0.0-1.1) Immature Gran # 0.01 10^3/uL 10^3/uL (0.00-0.10) Sodium 146 mEq/L H mEq/L (135-145) Potassium 4.2 mEq/L mEq/L (3.5-5.2) Chloride 105 mEq/L mEq/L (97-110) Carbon Dioxide 26 mEq/l mEq/l (22-31) Anion Gap 15 mEq/L mEq/L (8-16) BUN 10 mg/dL mg/dL (7-23) Creatinine 0.7 mg/dL mg/dL (0.7-1.3) Estimated GFR > 60 Glucose 91 mg/dL mg/dL (70-100) Calcium 8.8 mg/dL mg/dL (8.5-10.4) Urine Opiates Screen NEGATIVE (NEGATIVE) Urine Barbiturates NEGATIVE (NEGATIVE) Ur Phencyclidine Scrn NEGATIVE (NEGATIVE) Ur Amphetamine Screen NEGATIVE (NEGATIVE) U Benzodiazepines Scrn NEGATIVE (NEGATIVE) Urine Cocaine Screen NEGATIVE (NEGATIVE) U Marijuana (THC) Screen NEGATIVE (NEGATIVE) Ethyl Alcohol < 10 mg/dL mg/dL (0-10) Medications Given: Discontinued Medications Lorazepam (Ativan) 0.5 mg PO EDNOW ONE Stop: 07/04/17 14:42 Last Admin: 07/04/17 15:06 Dose: Not Given Nicotine (Nicoderm Cq) 14 mg TD EDNOW ONE Stop: 07/04/17 14:42 Last Admin: 07/04/17 15:26 Dose: 14 mg Olanzapine (Zyprexa Zydis) 5 mg PO EDNOW ONE Stop: 07/04/17 08:33 Last Admin: 07/04/17 09:02 Dose: Not Given Departure - Departure Disposition: Other Psych, Not Cecy Clinical Impression: Bipolar disorder with severe deanna Condition: Fair
[2017-07-04] MEDS ORDERED: OLANZapine DISINTEGR 5 MG TAB PO ONE (08:32)
[2017-07-04 08:58] LABS: PLATELET COUNT 236 10^3/uL (150-400)
[2017-07-04] MEDS ORDERED: NICOTINE 14 MG/24 HR PATCH TD ONE (14:41)
[2017-07-04] MEDS ORDERED: LORazepam 0.5 MG TAB PO ONE (14:41)
[2017-07-04 15:11] VITALS: BP 140/70
== END 2017-07-04 15:32 ==
LOC: EDUNIT#
PROC: GZ11ZZZ Psychological Tests, Personality and Behavioral (ICD-10-PCS; principal; 2017-07-04)
DX: F31.9 Bipolar disorder, unspecified (principal); F17.200 Nicotine dependence, unspecified, uncomplicated
CPT/HCPCS: 80305; G0480